=== PATIENT | female | born 1960 | race Caucasian/White ===

== ENCOUNTER 2017-01-16 18:51 | Emergency (ER) | payer BC | END 2017-01-16 21:40 | disposition home or self-care (01) | LOC: ER1 18:51 | DX: S82.141A Displaced bicondylar fracture of right tibia, initial encounter for closed fracture (principal); E11.9 Type 2 diabetes mellitus without complications; X50.1XXA Overexertion from prolonged static or awkward postures, initial encounter; Y92.009 Unspecified place in unspecified non-institutional (private) residence as the place of occurrence of the external cause; Z88.1 Allergy status to other antibiotic agents | CPT/HCPCS: 29505; 73560; 73590; 73700; 99283 ==